=== PATIENT | female | born 1980 | race Caucasian/White ===

== ENCOUNTER → 2016-10-17 | Outpatient (CLI) | payer BC ==
[2016-10-17 17:35] LABS: BLOOD UREA NITROGEN 10 mg/dL (7-22); BUN/CREATININE RATIO 14.28 (6-20); CALCIUM 9.2 mg/dL (8.7-10.7); EST GLOMERULAR FILTRATION > 60 (>60 ml/min/1.73m(2))
[2016-10-17 18:46] LABS: FREE T4 (FREE THYROXINE) 0.76 ng/dL (0.93-1.71)
== END ==
LOC: MOB LAB 15:21
PROVIDERS: ATTEND Student in an Organized Health Care Education/Training Program
DX: R29.2 Abnormal reflex (principal); G47.00 Insomnia, unspecified; R94.6 Abnormal results of thyroid function studies
CPT/HCPCS: 36415; 80048; 84439; 84443; 84481

== ENCOUNTER → 2016-10-21 | Outpatient (CLI) | payer BC ==
--- NOTE | 2016-10-21 10:35 | DI ---
MRI BRAIN SCAN WITHOUT CONTRAST, 10/21/2016 9:54 AM: Clinical History: Migraine without status migrainosis, not intractable. Previous Exam: None at this facility. Sequences: Sagittal T1; Axial DEE DEE T2 and FLAIR. Axial diffusion weighted images with ADC mapping were also performed. The 4th, 3rd, and lateral ventricles are of normal size, shape, position, and contour for this patien t's age. There are no focal areas of abnormally increased or decreased signal intensity. Diffusion we ighted imaging with ADC mapping is normal. There are no extracerebral mantels or shift of the midline structures. The paranasal sinuses are normal. Readin. Normal noncontrast MRI brain scan. 2. Diffusion weighted imaging with ADC mapping is normal.
== END ==
LOC: MRI 09:50
PROVIDERS: ATTEND Student in an Organized Health Care Education/Training Program
DX: G43.009 Migraine without aura, not intractable, without status migrainosus (principal)
CPT/HCPCS: 70551

== ENCOUNTER → 2017-02-15 | Outpatient (CLI) | payer BC ==
[2017-02-15 12:56] LABS: HEMOGLOBIN A1C 4.88 % (4.2-6.0)
== END ==
LOC: MOB LAB 10:11
PROVIDERS: ATTEND Student in an Organized Health Care Education/Training Program
DX: E05.90 Thyrotoxicosis, unspecified without thyrotoxic crisis or storm (principal); R73.09 Other abnormal glucose; D50.9 Iron deficiency anemia, unspecified
CPT/HCPCS: 36415; 82728; 83036; 84443